=== PATIENT | male | born 1960 | race Asian ===

== ENCOUNTER 2018-06-23 09:04 | Emergency (ER) | payer MEDICARE, OTHER ==
[~2018-06-23] VITALS: Ht 157.5 cm; Wt 68.7 kg
[2018-06-23] MEDS ORDERED: MECL-111 PO (11:30)
[2018-06-23 11:41] VITALS: BP 131/87
== END 2018-06-23 11:42 | disposition home or self-care (01) ==
LOC: ER 09:05
DX: R11.0 Nausea (principal); R42 Dizziness and giddiness; Z98.890 Other specified postprocedural states
CPT/HCPCS: 99283